=== PATIENT | male | born 1945 | race Caucasian/White ===

== ENCOUNTER 2020-05-18 06:33 | Day surgery (SDC) | payer MEDICARE, OTHER ==
[2020-05-12 16:12] LABS: BASOPHILS # (AUTO) 0.1 X10'3 (0-0.2); BASOPHILS % (AUTO) 0.7 % (0-1); EOSINOPHILS # (AUTO) 0.3 X10'3 (0-0.9); EOSINOPHILS % (AUTO) 3.3 % (0-6); LYMPHOCYTES % (AUTO) 29.4 % (21-51); MEAN CORPUSCULAR HEMOGLOBIN 29.3 PG (27.0-31.0); MEAN CORPUSCULAR HGB CONC 33.3 g/dL (33.0-36.5); MONOCYTES % (AUTO) 9.6 % (2-12); NEUTROPHILS # (AUTO) 5.7 X10'3 (1.8-7.7); PRE OP HEMATOCRIT 41.6 % (42.0-52.0); PRE OP HEMOGLOBIN 13.8 g/dL (14.0-17.9); PRE OP PLATELET COUNT 339 X10'3 (140-440); RED BLOOD COUNT 4.72 X10'6 (4.70-6.10); RED CELL DISTRIBUTION WIDTH 13.7 % (11.5-14.5)
[2020-05-12 16:20] LABS: ALBUMIN 3.7 G/DL (3.4-5.0); ALBUMIN/GLOBULIN RATIO 1.1 (1.1-1.5); ALKALINE PHOSPHATASE 98 IU/L (46-116); BLOOD UREA NITROGEN 15 MG/DL (7-18); BUN/CREATININE RATIO 14.2 (5.4-32.0); CALCIUM 8.5 MG/DL (8.5-10.1); CHLORIDE 109 MMOL/L (99-107); CREATININE 1.06 MG/DL (0.60-1.10); PRE OP ALT 27 U/L (30-65); PRE OP ANION GAP 7 (8-16); PRE OP AST 20 U/L (10-37); PRE OP BILIRUB, TOTAL 0.3 MG/DL (0.0-1.0); PRE OP GLUCOSE 111 MG/DL (70-104); PRE OP POTASSIUM 4.4 MMOL/L (3.4-5.1); PRE OP SODIUM 141 MMOL/L (135-145); TOTAL CARBON DIOXIDE 25.4 MMOL/L (24-32); eGFR 68 ML/MIN
[~2020-05-18] VITALS: Ht 177.8 cm; Wt 96.7 kg
[~2020-05-18 06:33] MED LIST: BUPR1FIL3 SL; CBD CREAM; CYAN500T64 PO; DULO-31 PO; LISI40TA4 PO; MULT-1085 PO; TADA20TA54 PO; VITAMIN D; VITAMINC; ceFAZolin 2gm in dextrose, iso 50 ML IV ONE; famotidine 20mg tablet PO ONE; ringers solution, lacted 1,000 ML IV SCH
[2020-05-18] MEDS ORDERED: BUPIVAcaine/PF 2.5mg/ml (0.25%) 10ml vial ONE (06:44)
[2020-05-18 07:00] VITALS: BP 156/91
[2020-05-18] MEDS ORDERED: midazolam 2 mg/2 ml injection ONE ×2 (08:26→09:07)
[2020-05-18] MEDS ORDERED: fentaNYL/PF 50MCG/1 ML 2ML syringe ONE ×2 (08:26→08:47)
[2020-05-18] MEDS ORDERED: hydrALAZINE 20mg/ml inj. IV ONE (09:07)
[2020-05-18] MEDS ORDERED: propofol inj 20 ML IV ONE (09:07)
[2020-05-18 09:15] VITALS: BP 136/80
--- NOTE | 2020-05-18 09:15 | NUR ---
Received from OR via BED, accompanied by Anesthesiologist DR BECERRIL and report given by Anesthesiolgist. PATIENT A&OX4, DENIES PAIN, V/S WNL, NEUROVASCULAR CHECKS INTACT, 20G PIV RUE, SCD ON, DRESSING TO LEFT ELBOW AND WRIST CDI ELEVATED WITH ICEBAG APPLIED.
[2020-05-18 09:16] VITALS: BP 136/80
[2020-05-18 09:25] VITALS: BP 132/90
[2020-05-18 09:35] VITALS: BP 139/84
[2020-05-18 09:45] VITALS: BP 136/79
--- NOTE | 2020-05-18 09:45 | NUR ---
PATIENT A&OX4, DENIES PAIN, V/S WNL, NEUROVASCULAR CHECKS INTACT, 20G PIV RUE D/C, SCD OFF, DRESSING TO LEFT ELBOW AND WRIST CDI ELEVATED WITH ICEBAG APPLIED. PATIENT HAS MET ALL DC CRITERIA FOR DC HOME. I HAVE REVIEWED D/C INSTRUCTIONS WITH PATIENT. TAKEN OUT VIA WHEELCHAIR WHERE PATIENT WAS TAKEN HOME WITH ALL BELONGINGS. FAMILY GAVE PATIENT TRANSPORT HOME.
== END 2020-05-18 09:45 | disposition home or self-care (01) ==
LOC: PAS 06:33
PROVIDERS: ATTEND Orthopaedic Surgery Hand Surgery
DX: G56.02 Carpal tunnel syndrome, left upper limb (principal); G56.22 Lesion of ulnar nerve, left upper limb; I11.9 Hypertensive heart disease without heart failure; M19.90 Unspecified osteoarthritis, unspecified site; F32.9 Major depressive disorder, single episode, unspecified; E11.9 Type 2 diabetes mellitus without complications; Z96.653 Presence of artificial knee joint, bilateral; Z98.41 Cataract extraction status, right eye; Z98.42 Cataract extraction status, left eye; Z98.890 Other specified postprocedural states; Z95.5 Presence of coronary angioplasty implant and graft; Z79.899 Other long term (current) drug therapy; Z20.828 Contact with and (suspected) exposure to other viral communicable diseases; Z88.5 Allergy status to narcotic agent; Z87.891 Personal history of nicotine dependence
CPT/HCPCS: 36415; 64718; 64721; 80053; 82948; 85025; 87635; 93005; J0360; J2250; J2704; J3010; J3490; A4215; A6449; J7120

== ENCOUNTER 2021-07-02 08:49 | Day surgery (SDC) | payer MEDICARE, OTHER ==
[~2021-07-02] VITALS: Ht 177.8 cm; Wt 95.8 kg
[2021-07-02] VITALS (13 sets, daily range): BP systolic 111–166; BP diastolic 66–88
[~2021-07-02 08:49] MED LIST changes: -CYAN500T64 PO; +CYAN500T71 PO; +LISI40TA13 PO; -LISI40TA4 PO; -TADA20TA54 PO; +TADA20TA70 PO; -ceFAZolin 2gm in dextrose, iso 50 ML IV ONE; -famotidine 20mg tablet PO ONE; -ringers solution, lacted 1,000 ML IV SCH
[2021-07-02] MEDS ORDERED: BUPR1FIL56 SL (09:35)
[2021-07-02] MEDS ORDERED: CoQ10 PO (09:35)
[2021-07-02] MEDS ORDERED: METH-797 PO (09:35)
[2021-07-02] MEDS ORDERED: PANT40TA54 PO (09:35)
[2021-07-02] MEDS ORDERED: SUCR1TAB PO (09:35)
[2021-07-02] MEDS ORDERED: FLO0.4C PO (09:35)
[2021-07-02] MEDS ORDERED: midazolam 1 mg/ML 2ml injection ONE ×2 (10:21→11:00)
[2021-07-02] MEDS ORDERED: fentaNYL/PF 50MCG/1 ML 2ML syringe ONE ×2 (10:21→11:00)
[2021-07-02] MEDS ORDERED: gelatin sponge, absorbable (Gelfoam 12-7MM) sponge TP ONE (10:30)
[2021-07-02 10:35] LABS: BASOPHILS # (AUTO) 0.1 X10'3 (0-0.2); BASOPHILS % (AUTO) 1.2 % (0-1); EOSINOPHILS # (AUTO) 0.2 X10'3 (0-0.9); EOSINOPHILS % (AUTO) 2.3 % (0-6); HEMATOCRIT 29.9 % (42.0-52.0); HEMOGLOBIN 9.9 g/dl (14.0-17.9); LYMPHOCYTES # (AUTO) 1.7 X10'3 (1.1-4.8); LYMPHOCYTES % (AUTO) 21.1 % (21-51); MEAN CORPUSCULAR HEMOGLOBIN 28.8 PG (27.0-31.0); MEAN CORPUSCULAR HGB CONC 33.1 g/dL (33.0-36.5); MEAN CORPUSCULAR VOLUME 86.8 FL (78-98); MEAN PLATELET VOLUME 6.4 FL (7.4-10.4); MONOCYTES # (AUTO) 0.8 X10'3 (0-0.9); MONOCYTES % (AUTO) 9.6 % (2-12); NEUTROPHILS # (AUTO) 5.2 X10'3 (1.8-7.7); NEUTROPHILS % (AUTO) 65.8 % (42-75); PLATELET COUNT 430 X10'3 (140-440); RED BLOOD COUNT 3.45 X10'6 (4.70-6.10); RED CELL DISTRIBUTION WIDTH 15.1 % (11.5-14.5); WHITE BLOOD COUNT 7.9 X10'3 (4.5-11.0)
== END 2021-07-02 13:26 | disposition home or self-care (01) ==
LOC: SSTAY O 08:49
PROVIDERS: ATTEND Preventive Medicine Aerospace Medicine
DX: M46.26 Osteomyelitis of vertebra, lumbar region (principal); M46.40 Discitis, unspecified, site unspecified; I10 Essential (primary) hypertension; Z79.899 Other long term (current) drug therapy
CPT/HCPCS: 20225; 36415; 77012; 82948; 85025; 87070; 99152; 99153; J2250; J3010